=== PATIENT | male | born 1950 | race Caucasian/White ===

== ENCOUNTER → 2017-07-01 | Outpatient (CLI) | payer OTHER ==
[~2017-07-01] MED LIST: FLOMAX0.4 MG PO; NORCO 5-325 TA1 EACH PO
== END ==
LOC: MRI 07:04 → EDSTATUS 11:08 → MRI 15:55
DX: S82.144A Nondisplaced bicondylar fracture of right tibia, initial encounter for closed fracture (principal); X58.XXXA Exposure to other specified factors, initial encounter; Y93.89 Activity, other specified; Y92.89 Other specified places as the place of occurrence of the external cause; Y99.8 Other external cause status

== ENCOUNTER → 2018-05-25 | Outpatient (CLI) | payer OTHER | LOC: CAT 11:33 | DX: Z13.6 Encounter for screening for cardiovascular disorders (principal); Z82.49 Family history of ischemic heart disease and other diseases of the circulatory system ==

== ENCOUNTER → 2018-08-16 | Outpatient (CLI) | payer OTHER | LOC: RAD 11:24 | DX: J98.4 Other disorders of lung (principal); R07.9 Chest pain, unspecified ==

== ENCOUNTER → 2018-10-27 | Outpatient (CLI) | payer OTHER | LOC: MRI 09:52 | DX: S83.241A Other tear of medial meniscus, current injury, right knee, initial encounter (principal); T14.8XXA Other injury of unspecified body region, initial encounter; R60.0 Localized edema; X58.XXXA Exposure to other specified factors, initial encounter; Y93.89 Activity, other specified; Y92.89 Other specified places as the place of occurrence of the external cause; Y99.8 Other external cause status ==

== ENCOUNTER → 2018-12-27 | Outpatient (CLI) | payer OTHER | LOC: MRI 08:57 | DX: S83.242A Other tear of medial meniscus, current injury, left knee, initial encounter (principal); M25.462 Effusion, left knee; X58.XXXA Exposure to other specified factors, initial encounter; Y93.89 Activity, other specified; Y92.89 Other specified places as the place of occurrence of the external cause; Y99.8 Other external cause status ==

== ENCOUNTER → 2019-02-16 | Outpatient (CLI) | payer OTHER | LOC: RAD 08:11 | DX: R13.12 Dysphagia, oropharyngeal phase (principal) ==

== ENCOUNTER → 2019-05-16 | Outpatient (CLI) | payer OTHER | LOC: MRI 09:28 | DX: S83.241A Other tear of medial meniscus, current injury, right knee, initial encounter (principal); M25.461 Effusion, right knee; M25.861 Other specified joint disorders, right knee; M71.21 Synovial cyst of popliteal space [Baker], right knee; X58.XXXA Exposure to other specified factors, initial encounter; Y93.89 Activity, other specified; Y92.89 Other specified places as the place of occurrence of the external cause; Y99.8 Other external cause status ==

== ENCOUNTER 2019-05-30 13:19 | Day surgery (SDC) | payer OTHER ==
[2019-05-29 15:21] LABS: HEMATOCRIT 43.5 % (42.0-52.0); HEMOGLOBIN 14.1 gm/dL (14.0-18.0); MCH 29.3 pg (26.0-34.0); MCHC 32.3 g/dL (28.0-37.0); MCV 90.6 fL (80.0-100.0); RBC 4.8 mil/uL (4.50-6.00); RDW 13.1 % (10.5-14.5); WBC 10.4 thou/uL (4.0-11.0)
[2019-05-29 15:22] LABS: URINE BILIRUBIN NEGATIVE (Negative); URINE BLOOD 3+ (Negative); URINE CLARITY CLEAR; URINE COLOR YELLOW; URINE GLUCOSE-RANDOM* NEGATIVE (Negative); URINE KETONES NEGATIVE (Negative); URINE LEUKOCYTES-REFLEX NEGATIVE (Negative); URINE NITRITE-REFLEX NEGATIVE (Negative); URINE PROTEIN (DIPSTICK) NEGATIVE (Negative); URINE SPECIFIC GRAVITY >= 1.030 (1.005-1.035); URINE UROBILINOGEN 0.2 E.U./dl (0.2-1.0)
[2019-05-29 15:29] LABS: ALBUMIN 3.8 g/dL (3.4-5.0); CALCIUM 9.3 mg/dL (8.5-10.1); CASTS None Seen /LPF (None Seen); CREATININE 1.1 mg/dL (0.7-1.3); CRYSTALS None Seen /LPF (None Seen); POTASSIUM 3.8 mmol/L (3.5-5.1); SQUAMOUS None Seen /LPF (0-3); URINE RBC >20 Many /HPF (0-2)
[2019-05-29 15:30] LABS: BACTERIA-REFLEX 1-9 Few /HPF (None Seen); URINE WBC-REFLEX 0-5 Rare /HPF (0-5)
--- NOTE | 2019-05-29 15:31 | EKG ---
[facility] [place] [address] ELECTROCARDIOGRAM REPORT [facility] #: [facility].#: [id number] Admission: Attend Phys: Chris Kruse MD Discharge: Date of : 54 Report #: [id number] THIS REPORT FOR: cc: Graham Mac MD, David L. MD Couchonnal, Luis F. MD ~ THIS REPORT FOR: //name// [facility] Test Date: 2019-05-29 Test Time: 15:18:44 Pat Name: SUELLEN KING Department: Room: Gender: Front Desk Manager: zaheer : 1950 Requested By: Chris Kruse Order Number: [id number] MD: Adán Pearce Measurements Intervals [place] Rate: 78 P: 26 WI: 168 QRS: -20 QRSD: 90 T: 2 QT: 391 QTc: 446 Interpretive Statements Sinus rhythm RSR' in V1 or V2, probably normal variant Left ventricular hypertrophy Borderline T abnormalities, inferior leads No previous ECG available for comparison Electronically Signed On 05-29-2019 15:30:38 [employer]ARD TRUCK [employer]IVER by Adán Pearce [email or web address] <ELECTRONICALLY SIGNED> By: Adán Pearce MD 05/29/19 1530 1518 1518 Adán Pearce MD /EPI
[2019-05-29 15:35] LABS: PROTIME 10.7 Seconds (9.3-11.4)
[2019-05-30] VITALS (7 sets, daily range): BP systolic 127–169; BP diastolic 67–100
[~2019-05-30] VITALS: Ht 177.8 cm; Wt 96.6 kg
[~2019-05-30 13:19] MED LIST changes: +ASA81BEC PO; +ATORVASTATIN CA10 MG PO; +IBUPROFEN 800800 M1 PO; +OMEPRAZOLE40 MG PO; +VITAMIN D310 MCG/11 SUBLING; +[UNRECOGNIZED DRUG - OTHER] PO; +[UNRECOGNIZED DRUG - OTHER] PO
[2019-05-31 00:30] VITALS: BP 129/84
[2019-05-31 03:45] VITALS: BP 127/68
--- NOTE | 2019-05-31 04:26 | NUR ---
PT ARRIVED ON THE UNIT FROM SX @1915 WITH FAMILY. A&OX4 IV INTACT AND FLUIDS STARTED. PT ORIENTED TO THE ROOM VS CHECKED. IRIS DRESSING, SCD'S AND POLAR PACK IN PLACE. EVENING MEDS GIVEN AND PT ZEHRA IT WELL. SANDWICH BOX ALSO GIVEN TO PT. PT UP WITH ASSISTX1 WITH WALKER AND GB TO THE BATHROOM ZEHRA DID VERY GOOD THIS SHIFT. FALL PREC IN PLACE AND CALL LIGHT IN REACH WILL CONT WITH POC TILL EOS
--- NOTE | 2019-05-31 07:16 | O ---
[address] [address] OPERATIVE REPORT Name: SUELLEN KING III Room #: 437-P [facility]..#: [id number] Admission: 05/30/19 Attend Phys: Chris Kruse MD Discharge: Date of : 54 Report #: [id number] THIS REPORT FOR: cc: Graham Mac MD, David L. MD McCabe,Chris Smalls MD ~ CC: Graham Kruse DATE OF SERVICE: 05/30/2019 SERVICE: Orthopedics. FACILITY: [facility]. SURGEON: Chris Kruse MD TANK WAGON DRIVER: Margaret Crooks NP. INDICATION FOR TANK WAGON DRIVER: Extremity positioning, retraction, assistance with the reconstruction. PREOPERATIVE DIAGNOSES: 1. Severe right knee pain. 2. Osteochondral fracture with medial compartment osteoarthritis of right knee. POSTOPERATIVE DIAGNOSES: 1. Severe right knee pain. 2. Osteochondral fracture with medial compartment osteoarthritis of right knee. PROCEDURES: 1. Right knee medial unicompartmental knee arthroplasty. 2. Computer navigated robotic-assisted arthroplasty. COMPLICATIONS: None. DRAINS: None. SPECIMENS: None. ANESTHESIA: General with regional. FINDINGS: 1. 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 [address] [address] OPERATIVE REPORT Name: SUELLEN KING III Room #: 437-P [facility]#: [id number] Admission: 05/30/19 Attend Phys: Chris Kruse MD Discharge: Date of : 54 Report #: [id number] 2. Large full thickness articular cartilage loss with necrotic bone at the base on the entire weightbearing portion of the medial femoral condyle. 3. Alaniz and Nephew Oxinium size 4 tibial component, 10 mm polyethylene insert and size 6 femoral component. HISTORY: The patient is a 69-year-old gentleman who had abrupt onset of severe right medial-sided knee pain in February. He was actually status post right knee arthroscopy the week prior by another physician for medial meniscus tear and was initially doing well and then essentially was a subchondral insufficiency fracture and was followed by some degree of necrosis of the subchondral bone of the medial femoral condyle. He presented to the [facility] in our office approximately 4 months into this process, walking with a cane, unable to perform any of his activities of daily living and having significant daily pain with simple activities. The x-rays showed a collapsed fracture of the medial femoral condyle at the articular surface and we obtained an MRI, which confirmed with no articular cartilage in this section and significant medial femoral condyle bone marrow edema. We discussed treatment options. I felt that medial unicompartmental arthroplasty was most appropriate as it would address the bony issue as well as his history of previous medial meniscal pathology. Risks, benefits, alternatives and indications of surgery were discussed with him in detail. Risks include but not limited to pain, bleeding, infection, injury to nerves or blood vessels, persistent pain despite surgical intervention, failure of any repairs, failure of the arthroplasty, need for further surgery including conversion to a total knee as well as issues related to stiffness and complications related to anesthesia such as stroke, heart attack, pulmonary complications, thromboembolic disease and . Despite these risks, he wished to proceed. PROCEDURE IN DETAIL: After right lower extremity was correctly identified in preoperative holding area as the operative extremity, the patient underwent placement of single shot regional nerve block. He was taken to the operating room where general anesthesia was induced without complication with LMA. He was padded appropriately. Prophylactic antibiotics were administered at appropriate time. Tourniquet was applied to right leg. Right lower extremity was then prepped and draped in standard sterile fashion. Time-out procedure was performed. Esmarch was used to exsanguinate. Tourniquet was inflated to 300 mmHg. Standard anterior approach was made to the knee with a medial parapatellar arthrotomy. This allowed exposure of the entire knee and good visualization of the medial, lateral and patellofemoral compartments. His pain was specifically in the medial side of the knee and he did have some chondromalacia of the patellofemoral joint, but was not severe enough to necessitate a total knee arthroplasty. The lateral compartment appeared healthy. The cruciates were intact. The anterior horn and body of the medial meniscus were intact, but there was truncation from the previous surgery. The medial femoral condyle had [address] [address] OPERATIVE REPORT Name: SUELLEN KING [facility] Room #: 437-P [facility] M.R.#: [id number] Admission: 05/30/19 Attend Phys: Chris Kruse MD Discharge: Date of : 54 Report #: [id number] very bad looking lesion, which was oval in shape and was full thickness down to layer of necrotic bone, which had some hemorrhage within it. The Alaniz the Alaniz and [employer] Navio half pins were placed as were the tracker pins and then alignment, sizing and measurements were taken with the Navio. We sized it for the above implants and then used the Navio bur to prepare both the femur and the tibia appropriately and then the tibia was sized for 4 was prepared with the blade and then the pin and the two lug holes and the trials were placed. We initially had a 9 mm trial. We ultimately went with a 10 mm trial. With the trial in place, the knee achieved good range of motion. It was well balanced with the Navio computer software and alignment was good. We selected the final implants, prepared the bone, thoroughly lavaged and then cemented the implants into position with care taken to ensure that there was no excessive cement in the posterior aspect of the knee. The knee was then held in extension while the cement was allowed to cure. The excess cement was removed. The periarticular injection cocktail was then injected in the knee medially, anteriorly and some laterally. The posterior capsule was injected prior to placement of the final implant after the trials were removed. Note that the meniscus had been removed from the medial side and the ACL was protected during the procedure. The tourniquet was let down. Hemostasis was achieved and then final poly was selected and placed and tamped into position. The knee was well balanced, had good range of motion, good alignment. The arthrotomy was closed over 1 gram vancomycin powder with 0 Vicryl suture in [id number] fashion. Skin was closed with 2-0 Vicryl followed by running subcuticular 3-0 Monocryl after Dermabond was applied and allowed to dry and then a compression stocking and a PolarCare device. The patient was awakened from anesthesia and taken to recovery room in stable condition. No complications. All counts were correct. <ELECTRONICALLY SIGNED> By: Chris Kruse MD 05/31/19 0716 1809 1846 MD norene Figureoa
[2019-05-31 08:02] VITALS: BP 127/68
[2019-05-31 08:40] VITALS: BP 121/67
--- NOTE | 2019-05-31 13:44 | NUR ---
PT ADMITTED RELATED TO RT UNICOMPARTMENTAL KNEE REPLACEMENT. CM REVIEWED CHART AND SPOKE WITH CARE TEAM. CM MET WITH PT AT BEDSIDE THIS DAY. PT IS A&O X4. CM ROLE INTRODCUED. PT USE TO WORK HERE IN RETIRED BEGINING OF THIS MONTH. PT INDICATED HE LIVES IN A HOUSE WITH HIS WITH 1 STEP TO ETNER AND NONE INSIDE. PT INDICATED HE HAS A CANE FOR USE AT HOME AND WILL NEED A FWW FOR DC. CM ORDERED THROUGH [facility] PATIENT. IT IS TO BE DELIVERED TO HOSPITAL FOR PT TO TAKE HOME WITH HIM. PT WILL DO OP PT AT [facility] IT IS CLOSE TO HIS HOME. PT TO DC HOME THIS DAY. NO OTHER CM INTERVENTION INDICATED. CASE CLOSED.
== END 2019-05-31 13:05 | disposition home or self-care (01) ==
LOC: OR 13:19 → 4S 19:45 → OR 05-31 13:05
PROVIDERS: Orthopaedic Surgery Sports Medicine
DX: M25.561 Pain in right knee (principal); M17.11 Unilateral primary osteoarthritis, right knee; S82.014A Nondisplaced osteochondral fracture of right patella, initial encounter for closed fracture; I10 Essential (primary) hypertension; E78.5 Hyperlipidemia, unspecified; N40.0 Benign prostatic hyperplasia without lower urinary tract symptoms; K21.9 Gastro-esophageal reflux disease without esophagitis; Z98.890 Other specified postprocedural states; Z87.891 Personal history of nicotine dependence; Z87.442 Personal history of urinary calculi; Z79.899 Other long term (current) drug therapy; X58.XXXA Exposure to other specified factors, initial encounter; Y93.89 Activity, other specified; Y92.89 Other specified places as the place of occurrence of the external cause; Y99.8 Other external cause status
CPT/HCPCS: 50010; 50101; 50415; 50954; 51130; 51225; 51320; 52001; 52282; 53078; 53370; 54118; 56527; 56528; 57095; 57103; 57110; 57180; 62110; 62900; 64043; 65060; 70005